=== PATIENT | male | born 1975 | race Caucasian/White ===

== ENCOUNTER → 2019-06-10 | Outpatient (CLI) | payer BC ==
--- NOTE | 2019-06-13 18:48 | XCELERA REPORT ---
[address] [address] Transthoracic Echocardiogram Report Name: AISHWARYA HUI Age: 44 yrs Gender: Male : 1975 Patient Status: Preadmit Patient Location: [facility] Study Date: 06/10/2019 11:05 AM Height: 66 in Weight: 290 lb BSA: 2.3 m2 Procedure: A two-dimensional transthoracic echocardiogram with color flow and Doppler was performed. The study was technically limited with all images being suboptimal in quality. The study was technically difficult with many images being suboptimal in quality. Reason For Study: TACHYCARDIA History: TACHYCARDIA. Ordering Physician: LOUISE PRAKASH Performed By: Milena Baum Interpretation Summary A two-dimensional transthoracic echocardiogram with color flow and Doppler was performed. The left ventricle is normal in size. There is normal left ventricular wall thickness. The left ventricular ejection fraction is within normal limits. LV EF is 65% Doppler measurements suggest normal left ventricular diastolic function The left ventricular wall motion is normal. There is no thrombus. No ASD , VSD , or PFO seen. The left atrial size is normal. There is no evidence of mitral valve prolapse. There is no vegetation seen on the mitral valve. There is no mitral valve stenosis. There is no mitral regurgitation noted. There is no aortic valvular vegetation. There is no aortic valve stenosis There is no LVOT obstruction. No aortic regurgitation is present. There is no tricuspid stenosis. No tricuspid regurgitation. Unablr to calculate RVSP due to insufficient TR jet. There is no pulmonic valvular stenosis. There is a trace amount of pulmonic regurgitation The aortic root is normal size. The inferior vena cava was not well visualized There is no pericardial effusion. MMode/2D Measurements & Calculations RVDd: 2.7 cm LVIDd: 4.9 cm FS: 40.1 % Ao root diam: 2.7 cm IVSd: 0.73 cm LVIDs: 2.9 cm EDV(Teich): 112.6 ml Ao root area: 5.6 cm2 LVPWd: 1.0 cm ESV(Teich): 33.1 ml EF(Teich): 70.6 % Doppler Measurements & Calculations MV E max jordan: MV dec slope: Ao V2 max: LV V1 max P.4 cm/sec 400.2 cm/sec2 122.7 cm/sec 3.9 mmHg MV A max jordan: MV dec time: 0.20 sec Ao max PG: LV V1 max: 69.6 cm/sec 6.0 mmHg 99.0 cm/sec MV E/A: 1.2 PA V2 max: PI end-d jordan: 127.2 cm/sec 88.6 cm/sec PA max P.5 mmHg Left Ventricle The left ventricle is normal in size. There is normal left ventricular wall thickness. The left ventricular ejection fraction is within normal limits. LV EF is 65%. Doppler measurements suggest normal left ventricular diastolic function. The left ventricular wall motion is normal. There is no thrombus. No ASD , VSD , or PFO seen. Right Ventricle The right ventricle is not well visualized secondary to technical limitations. Atria Right atrium not well visualized secondary to technical limitations. The left atrial size is normal. Mitral Valve There is no evidence of mitral valve prolapse. There is no vegetation seen on the mitral valve. There is no mitral valve stenosis. There is no mitral regurgitation noted. Aortic Valve There is no aortic valvular vegetation. There is no aortic valve stenosis. There is no LVOT obstruction. No aortic regurgitation is present. Tricuspid Valve There is no tricuspid stenosis. No tricuspid regurgitation. Unablr to calculate RVSP due to insufficient TR jet. Pulmonic Valve There is no pulmonic valvular stenosis. There is a trace amount of pulmonic regurgitation. Great Vessels The aortic root is normal size. The inferior vena cava was not well visualized. Effusions There is no pericardial effusion. : LOUISE PRAKASH Lakshmi
== END ==
LOC: SP 10:49
PROVIDERS: ATTEND Specialist
DX: I37.1 Nonrheumatic pulmonary valve insufficiency (principal); R00.0 Tachycardia, unspecified
CPT/HCPCS: 93306

== ENCOUNTER 2020-03-30 17:47 | Emergency (ER) | payer BC | END 2020-03-30 20:35 | disposition left against medical advice (07) | LOC: ER 17:47 | DX: Z53.21 Procedure and treatment not carried out due to patient leaving prior to being seen by health care provider (principal) ==

== ENCOUNTER 2020-04-01 16:04 | Emergency (ER) | payer BC ==
[2020-04-01] MEDS ORDERED: ONDANSETRON HCL INJ/PF 4 MG/2 ML SDV IV ONE ×2 (16:28→18:14)
[2020-04-01] MEDS ORDERED: OXYCODONE-ACETAMINOPHEN 5-325 MG TABLET PO ONE (16:28)
[2020-04-01] MEDS ORDERED: KETOROLAC TROMETHAMINE INJ/PF 30 MG/1 ML SDV IV ONE (16:28)
[2020-04-01] MEDS ORDERED: TAMSULOSIN HCL 0.4 MG CAP.SR.24H PO ONE (16:28)
[2020-04-01] MEDS ORDERED: NORMAL SALINE 1000 ML 1,000 ML IV ONE (16:28)
--- NOTE | 2020-04-01 16:31 | ER Document Report ---
ED Medical Screen (RME) - General Chief Complaint: Possible Kidney Stone Stated Complaint: RIGHT FLANK PAIN Time Seen by Provider: 04/01/20 16:28 Primary Care Provider: RUT BERGMAN NP [Primary Care Provider] - Follow up as needed Mode of Arrival: Ambulatory Information source: Patient Notes: 44-year-old male presented to ED for complaint of right flank pain that started on Friday. He states he is not taking anything for this pain. He does have history of kidney stones. He states he has been nauseated since morning. He states the pain is gotten worse all day. He is alert oriented respirations regular nonlabored speaking in full sentences. He is pale and diaphoretic. I have ordered him IV fluids, Toradol Zofran Percocet and Flomax. I have also ordered a CT abdomen pelvis with no IV or oral contrast. I have greeted and performed a rapid initial assessment of this patient. A comprehensive ED assessment and evaluation of the patient, analysis of test results and completion of medical decision making process will be conducted by an additional ED providers. TRAVEL OUTSIDE OF THE [place] IN LAST 30 DAYS: No - Related Data Allergies/Adverse Reactions: No Known Allergies Allergy (Verified 04/01/20 16:22) Past Medical History Renal/ Medical History: Reports: Hx Kidney Stones - 2 years ago - Immunizations Hx Diphtheria, Pertussis, Tetanus Vaccination: Yes Physical Exam - Vital signs Vitals: Temp Pulse Resp BP Pulse Ox 97.8 F 60 16 161/97 H 99 04/01/20 16:08 04/01/20 16:08 04/01/20 16:08 04/01/20 16:08 04/01/20 16:08 Course - Vital Signs Vital signs: Temp Pulse Resp BP Pulse Ox 97.8 F 60 16 161/97 H 99 04/01/20 16:08 04/01/20 16:08 04/01/20 16:08 04/01/20 16:08 04/01/20 16:08 Doctor's Discharge - Discharge Referrals: RUT BERGMAN NP [Primary Care Provider] - Follow up as needed
[2020-04-01 17:26] LABS: ALBUMIN 4.7 g/dL (3.5-5.0); ALKALINE PHOSPHATASE 87 U/L (38-126); ANION GAP 8 (5-19); ASPARTATE AMINO TRANSFERASE 23 U/L (17-59); BILIRUBIN,TOTAL 0.4 mg/dL (0.2-1.3); BLOOD UREA NITROGEN 15 mg/dL (7-20); CARBON DIOXIDE 30 mmol/L (22-30); CHLORIDE 102 mmol/L (98-107); GLUCOSE 144 mg/dL (75-110); POTASSIUM 4.5 mmol/L (3.6-5.0); TOTAL PROTEIN 7.8 g/dL (6.3-8.2)
[2020-04-01 17:28] LABS: ABSOLUTE BASOPHILS # (AUTO) 0.1 10^3/uL (0.0-0.2); ABSOLUTE EOSINOPHILS # (AUTO) 0.4 10^3/uL (0.0-0.6); ABSOLUTE LYMPHOCYTES (AUTO) 2.2 10^3/uL (0.5-4.7); ABSOLUTE NEUT (AUTO) 9.8 10^3/uL (1.7-8.2); BASOPHILS % (AUTO) 0.5 % (0-2); EOSINOPHILS % (AUTO) 2.8 % (0-6); HEMATOCRIT 45.6 % (37.9-51.0); HEMOGLOBIN 15.3 g/dL (13.5-17.0); LYMPHOCYTES % (AUTO) 16.6 % (13-45); MEAN CORPUSCULAR HEMOGLOBIN 31.5 pg (27.0-33.4); MEAN CORPUSCULAR HGB CONC 33.6 g/dL (32.0-36.0); MEAN CORPUSCULAR VOLUME 94 fl (80-97); MONOCYTES % (AUTO) 7.7 % (3-13); PLATELET COUNT 261 10^3/uL (150-450); RED BLOOD COUNT 4.86 10^6/uL (4.35-5.55); RED CELL DISTRIBUTION WIDTH 14.7 % (11.5-14.0); SEGMENTED NEUTROPHILS % (AUTO) 72.4 % (42-78); TOTAL CELLS COUNTED % (AUTO) 100 %; WHITE BLOOD COUNT 13.5 10^3/uL (4.0-10.5)
--- NOTE | 2020-04-01 17:29 | RADIOLOGY REPORT (SQ) ---
EXAM DESCRIPTION: CT ABD/PELVIS NO ORAL OR IV IMAGES COMPLETED DATE/TIME: 04/01/2020 5:11 pm REASON FOR STUDY: right flank pain COMPARISON: 05/31/2012 TECHNIQUE: CT scan of the abdomen and pelvis performed without intravenous or oral contrast. Images reviewed with lung, soft tissue, and bone windows. Reconstructed coronal and sagittal MPR images revi ewed. All images stored on PACS. All CT scanners at this facility use dose modulation, iterative reconstruction, and/or weight based d osing when appropriate to reduce radiation dose to as low as reasonably achievable (ALARA). [facility]: Dose Right [facility]: CareDose [facility]: Dose Right [facility]: Teradose 4D [facility]: Smart [employer] RADIATION DOSE: CT Rad equipment meets quality standard of care and radiation dose reduction techniq ues were employed. CTDIvol: 19.2 mGy. DLP: 1180 mGy-cm.mGy. LIMITATIONS: None. FINDINGS: LOWER CHEST: There is a 5 mm pulmonary nodule in the right lower lobe (axial image number 8). This nodule appears to be present on prior CT but may have increased in size. NON-CONTRASTED LIVER, SPLEEN, ADRENALS: Evaluation limited by lack of IV contrast. No identified sign ificant masses. PANCREAS: No masses. No peripancreatic inflammatory changes. GALLBLADDER: No identified stones by CT criteria. No inflammatory changes to suggest cholecystitis. RIGHT KIDNEY AND URETER: There is a 5 mm stone in the inferior pole of the right kidney. There is a 7 mm stone in the proximal right ureter resulting in some mild dilatation of the right renal pelvis a nd right renal collecting system. LEFT KIDNEY AND URETER: There is a 1 cm stone in the proximal left ureter resulting in moderate left- sided hydronephrosis. AORTA AND RETROPERITONEUM: No aneurysm. No retroperitoneal masses or adenopathy. BOWEL AND PERITONEAL CAVITY: No obvious masses or inflammatory changes. No free fluid. A small hiata l hernia is present. APPENDIX: Normal. PELVIS, BLADDER, AND ABDOMINAL WALL:No abnormal masses. No free fluid. Bladder normal. BONES: No significant findings. OTHER: No other significant finding. IMPRESSION: 1. 7 mm obstructing stone in the proximal right ureter 2. 10 mm obstructing stone in the proximal left ureter 3. Right-sided nephrolithiasis 4. 5 mm pulmonary nodule in the right lower lobe that appears to have grown in size when compared to prior imaging of 2011. Recommended dedicated noncontrast chest CT to further evaluate. 5. Hiatal hernia COMMENT: Quality ID # [id number]: Final reports with documentation of one or more dose reduction techniques (e.g., Automated exposure control, adjustment of the mA and/or kV according to patient size, use of iterative reconstruction technique) TECHNICAL DOCUMENTATION: JOB ID: [id number] 2010 [employer]- All Rights Reserved Reading location - IP/workstation name: [email or web address]
--- NOTE | 2020-04-01 18:09 | ER Document Report ---
ED GI/ - General Chief Complaint: Possible Kidney Stone Stated Complaint: RIGHT FLANK PAIN Time Seen by Provider: 04/01/20 16:28 Primary Care Provider: RUT BERGMAN NP [Primary Care Provider] - Follow up as needed Mode of Arrival: Ambulatory Notes: CHIEF COMPLAINT: Flank pain nausea vomiting HPI: 44-year-old male presenting to the emergency department complaining of flank pain more on the right than the left with some nausea vomiting that occurred last night slight nausea today. Does have kidney stone history. Does not follow with a urologist generally. No fever ROS: See HPI - all other systems were reviewed and are otherwise negative Constitutional: no fever Eyes: no drainage, no blurred vision ENT: no runny nose, no sore throat Cardiovascular: no chest pain Resp: no SOB, no cough GI: + vomiting, no diarrhea, + abdominal pain : no dysuria Integumentary: no rash Allergy: no hives Musculoskeletal: no extremity pain or swelling Neurological: no numbness/tingling, no weakness MEDICATIONS: I agree with the patient medications as charted by the RN. ALLERGIES: I agree with the allergies as charted by the RN. PAST MEDICAL HISTORY/PAST SURGICAL HISTORY: Reviewed and agree as charted by RN. SOCIAL HISTORY: Reviewed and agree as charted by RN. FAMILY HISTORY: No significant familial comorbid conditions directly related to patient complaint EXAM: Reviewed vital signs as charted by RN. CONSTITUTIONAL: Alert and oriented and responds appropriately to questions. Well-appearing; well-nourished HEAD: Normocephalic; atraumatic EYES: PERRL; Conjunctivae clear, sclerae non-icteric ENT: normal nose; no rhinorrhea; moist mucous membranes; pharynx without lesions noted, no uvula edema or deviation, no tonsillar hypertrophy, phonation normal NECK: Supple without meningismus; non-tender; no cervical lymphadenopathy, no masses CARD: RRR; no murmurs, no clicks, no rubs, no gallops; symmetric distal pulses RESP: Normal chest excursion without splinting or tachypnea; breath sounds clear and equal bilaterally; no wheezes, no rhonchi, no rales, pulse oximetry ABD/GI: Obese, normal bowel sounds; non-distended; soft, non-tender, no rebound, no guarding; no palpable organomegaly or masses. BACK: The back appears normal and is non-tender to palpation, there is mild bilateral CVA tenderness EXT: Normal ROM in all joints; non-tender to palpation; no cyanosis, no effusions, no edema SKIN: Normal color for age and race; warm; dry; good turgor; no acute lesions noted NEURO: Moves all extremities equally; Motor and sensory function intact PSYCH: The patient's mood and manner are appropriate. Grooming and personal hygiene are appropriate. MDM: 44-year-old male with kidney stone history with bilateral flank pain but worse on the right. Patient has bilateral obstructing proximal stone 7 mm on the right 10 mm on the left. Slight elevation of his creatinine at 1.43. Awaiting urinalysis. 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 IN LAST 30 DAYS: No - Related Data Allergies/Adverse Reactions: No Known Allergies Allergy (Verified 04/01/20 16:22) Past Medical History - General Information source: Patient - Social History Smoking Status: Never Smoker Family History: Reviewed & Not Pertinent Patient has homicidal ideation: No Renal/ Medical History: Reports: Hx Kidney Stones - 2 years ago - Immunizations Hx Diphtheria, Pertussis, Tetanus Vaccination: Yes Physical Exam - Vital signs Vitals: Temp Pulse Resp BP Pulse Ox 97.8 F 60 16 161/97 H 99 04/01/20 16:08 04/01/20 16:08 04/01/20 16:08 04/01/20 16:08 04/01/20 16:08 Course - Re-evaluation Re-evalutation: 04/01/20 18:28 spoke with [facility], Awaiting callback from Dr. Derek Gutierrez, Urology 04/01/20 19:[address] Derek Gutierrez urology at [facility]. He has reviewed the images request the patient be sent over to [facility]. Patient is stable. Discussed with Dr. Rich attending. Dr. Gutierrez has requested that the patient come POV patient is agreeable to this as it will speed up the time that he can be treated. Dr. Gutierrez requests that the patient come to the emergency department registration and he will have orders there for the patient to be direct admitted to the OR for stent placement. States patient will likely be able to go home. This was discussed at length with the patient who is agreeing to this plan. Patient is aware that he must stay n.p.o. prior to surgery. - Vital Signs Vital signs: Temp Pulse Resp BP Pulse Ox 97.8 F 60 16 161/97 H 99 04/01/20 16:08 04/01/20 16:08 04/01/20 16:08 04/01/20 16:08 04/01/20 16:08 - Laboratory Result Diagrams: 04/01/20 16:30 04/01/20 16:30 Laboratory results interpreted by me: 04/01/20 04/01/20 04/01/20 16:30 16:30 17:50 WBC 13.5 H RDW 14.7 H Absolute Neuts (auto) 9.8 H Creatinine 1.43 H Est GFR (MDRD) Non-Af 54 L Glucose 144 H Urine Blood LARGE H Ur Leukocyte Esterase TRACE H Discharge - Discharge Clinical Impression: Bilateral kidney stones, Urinary tract obstruction due to kidney stone Condition: Stable Disposition: [facility] Additional Instructions: Proceed directly to the emergency department registration at [facility] in [place]. Dr. Derek Gutierrez is the urologist that we spoke with and he stated that he will have orders for a direct admission to the operating room for you for stent placement. If there are any questions when you arrive there they may page Dr. Gutierrez directly. Do not eat or drink anything prior to being evaluated by urology Referrals: RUT BERGMAN, ASSEMBLY CLEANER [Primary Care Provider] - Follow up as needed
[2020-04-01] MEDS ORDERED: MORPHINE SULFATE 10 MG/ML INJ IV ONE (18:14)
[2020-04-01 18:28] LABS: APPEARANCE,URINE CLEAR; BILIRUBIN,URINE NEGATIVE (NEGATIVE); COLOR,URINE YELLOW; GLUCOSE, URINE NEGATIVE (NEGATIVE); KETONES,URINE NEGATIVE (NEGATIVE); LEUKOCYTE ESTERASE,URINE TRACE (NEGATIVE); NITRITE,URINE NEGATIVE (NEGATIVE); PROTEIN,URINE NEGATIVE (NEGATIVE); UROBILINOGEN,URINE NEGATIVE mg/dL (<2.0)
[2020-04-01] MEDS ORDERED: HYDROMORPHONE HCL INJ/PF 2 MG/ML AMPULE IV ONE (19:01)
[2020-04-01 19:09] VITALS: BP 150/90
== END 2020-04-01 21:24 | disposition short-term general hospital (02) ==
LOC: ER 16:04
DX: N13.8 Other obstructive and reflux uropathy (principal); N20.0 Calculus of kidney; R10.9 Unspecified abdominal pain; R11.2 Nausea with vomiting, unspecified; Z87.442 Personal history of urinary calculi; Z20.828 Contact with and (suspected) exposure to other viral communicable diseases
CPT/HCPCS: 96376; 99285; 96361; 96374; 96375; 36415; 83690; 85025; 87635; 80053; 81001; 74176; J1885; J2270; J1170; J2405; J7030; C9803